=== PATIENT | female | born 2000 | race Caucasian/White ===

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

== ENCOUNTER 2021-11-10 09:09 | Emergency (ER) | payer OTHER ==
[2021-11-10 09:14] VITALS: BP 137/74; PULSE 80; RESP 20; TEMP 98
--- NOTE | 2021-11-10 09:54 | ED ---
General Adult HPI - General Chief complaint: Needlestick/Exposure Stated complaint: needlestick Time Seen by Provider: 11/10/21 09:25 Source: patient, RN notes reviewed Mode of arrival: ambulatory Limitations: no limitations - History of Present Illness Initial comments: 21-year-old female presents emergency Department chief complaint of abrasion to her right leg. 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 Patient states that something cause an abrasion to her right leg to her scrub vomiting. Patient states that there is small linear skin removed there is no deep puncture wound. She states is minimal bleeding tetanus is up-to-date. She states that what causes this abrasion. - Related Data Home Medications Medication Instructions Recorded Confirmed Cariprazine HCl [Vraylar] 1.5 mg PO DAILY 07/11/18 07/11/18 Levothyroxine Sodium [Synthroid] 25 mcg PO DAILY 07/11/18 07/11/18 OXcarbazepine [Trileptal] 150 mg PO DAILY 07/11/18 07/11/18 OXcarbazepine [Trileptal] 300 mg PO DAILY 07/11/18 07/11/18 Omeprazole [PriLOSEC] 20 mg PO DAILY 07/11/18 07/11/18 hydrOXYzine pamoate [hydrOXYzine 50 mg PO DAILY 07/11/18 07/11/18 PAMOATE] levETIRAcetam [Keppra] 500 mg PO DAILY 07/11/18 07/11/18 Allergies Allergy/AdvReac Type Severity Reaction Status Date / Time No Known Allergies Allergy Verified 11/10/21 09:14 Review of Systems ROS Statement: Those systems with pertinent positive or pertinent negative responses have been documented in the HPI. ROS Other: All systems not noted in ROS Statement are negative. Past Medical History Past Medical History: GERD/Reflux, Seizure Disorder, Thyroid Disorder Additional Past Medical History / Comment(s): KIDNEY STONE, PCOS, History of Any Multi-Drug Resistant Organisms: None Reported Past Surgical History: Cholecystectomy Additional Past Anesthesia/Blood Transfusion Reaction / Comment(s): FIRST ANESTHETIC, Past Psychological History: ADD/ADHD, Anxiety, Bipolar, Depression Past Alcohol Use History: Occasional Past Drug Use History: Marijuana - Past Family History Mother Family Medical History: No Reported History General Exam Limitations: no limitations General appearance: alert, in no apparent distress Head exam: Present: atraumatic, normocephalic, normal inspection Eye exam: Present: normal appearance, PERRL, EOMI. Absent: scleral icterus, conjunctival injection, periorbital swelling Respiratory exam: Present: normal lung sounds bilaterally. Absent: respiratory distress, wheezes, rales, rhonchi, stridor Cardiovascular Exam: Present: regular rate, normal rhythm, normal heart sounds. Absent: systolic murmur, diastolic murmur, rubs, gallop, clicks Extremities exam: Present: other (Right anterior fernandes there is a small abrasion no active bleeding superficial layer skin removed no deep puncture wounds no lacerations.) Course Vital Signs 11/10/21 09:12 Temperature 98.0 F Pulse Rate 80 Respiratory 20 Rate Blood Pressure 137/74 O2 Sat by Pulse 97 Oximetry Medical Decision Making - Medical Decision Making It is unclear what the cause patient's abrasion to her right leg there is no deep injury. Puncture wounds no lacerations. Patient is a small abrasion I did offer HIV prophylaxis as we do not know the cause laceration no patient is comfortable not taking the medication given low probability. Disposition Clinical Impression: Abrasion of right leg Disposition: HOME SELF-CARE Condition: Stable Instructions (If sedation given, give patient instructions): Abrasion (ED) Additional Instructions: Please return to the Emergency Department if symptoms worsen or any other concerns. Is patient prescribed a controlled substance at d/c from ED?: No Referrals: Arabella Oates DO [Primary Care Provider] - 1-2 days Time of Disposition: 09:54
== END 2021-11-10 10:10 | disposition home or self-care (01) ==
LOC: EC 09:09
DX: S80.811A Abrasion, right lower leg, initial encounter (principal); K21.9 Gastro-esophageal reflux disease without esophagitis; E07.9 Disorder of thyroid, unspecified; F41.9 Anxiety disorder, unspecified; F31.9 Bipolar disorder, unspecified; F12.90 Cannabis use, unspecified, uncomplicated; Z79.899 Other long term (current) drug therapy; W46.1XXA Contact with contaminated hypodermic needle, initial encounter
CPT/HCPCS: 99282

== ENCOUNTER 2022-08-28 09:00 | Outpatient (CLI) | payer OTHER ==
[2022-08-28] MEDS ORDERED: LACTATED RINGERS 1,000 ML IV ONE (09:27)
[2022-08-28] MEDS ORDERED: ONDANSETRON 4 MG/2 ML VIAL IVP STA (09:28)
[2022-08-28] MEDS ORDERED: BETAMET ACET-BETAMETH SOD PHOS 6 MG/ML MDV IM SCH (10:01)
[2022-08-28] MEDS ORDERED: FAMOTIDINE 20 MG/2 ML VIAL IV SCH (10:15)
[2022-08-28] MEDS ORDERED: NIFEdipine 10 MG CAP PO SCH (10:30)
--- NOTE | 2022-08-28 10:59 | P.HPOB ---
History of Present Illness H&P Date: 08/28/22 Chief Complaint: nausea, vomiting, diarrhea, contractions 22 year old at 33 weeks and 5 days with EDC of 10/11/2022 presenting to triage with 1-day history of nausea, vomiting, diarrhea, and body aches after attending a libertarian and eating walking tacos. Her partner at the bedside complains of similar symptoms. She is also experiencing a few contractions an hour. She is feeling movement and denies leakage of fluid or vaginal bleeding. Of note, she has had intercourse within the last 24 hours and the decision is made not to do an FFN. 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 She receives care at [facility] and is supposed to deliver at [facility]. Otherwise, the has been uncomplicated. Past Medical History Past Medical History: GERD/Reflux, Seizure Disorder, Thyroid Disorder Additional Past Medical History / Comment(s): KIDNEY STONE, PCOS, pituitary tumor History of Any Multi-Drug Resistant Organisms: None Reported Past Surgical History: Cholecystectomy Additional Past Anesthesia/Blood Transfusion Reaction / Comment(s): FIRST ANESTHETIC, Past Psychological History: ADD/ADHD, Anxiety, Bipolar, Depression Smoking Status: Current every day smoker Past Alcohol Use History: Occasional Past Drug Use History: Marijuana - Past Family History Mother Family Medical History: No Reported History Medications and Allergies Home Medications Medication Instructions Recorded Confirmed Type Cariprazine HCl [Vraylar] 1.5 mg PO DAILY 07/11/18 08/28/22 History Levothyroxine Sodium [Synthroid] 25 mcg PO DAILY 07/11/18 08/28/22 History Omeprazole [PriLOSEC] 20 mg PO DAILY 07/11/18 08/28/22 History hydrOXYzine pamoate [hydrOXYzine 50 mg PO DAILY 07/11/18 08/28/22 History PAMOATE] levETIRAcetam [Keppra] 500 mg PO DAILY 07/11/18 08/28/22 History Vit No.179/Iron/Folic 1 tab PO ONCE 08/28/22 08/28/22 History [ Tablet] Allergies Allergy/AdvReac Type Severity Reaction Status Date / Time No Known Allergies Allergy Verified 08/28/22 09:25 Exam Intake and Output 08/27/22 08/28/22 08/28/22 22:59 06:59 14:59 Other: Weight 114.305 kg Focused physical exam is performed. The patient is breathing through a contraction. Cervial exam is 3cm dilated, 70% effaced, and -2 station. heart tones are Category I and the patient is graphing contractions every 10 minutes. Assessment and Plan Assessment: 22 year old at 33 weeks and 5 days presenting with viral symptoms and labor Plan: 1. labor. s/p first dose of BMZ, Procardia IR 10 mg for tocolysis. GBS cx collected and PCN bolus given. 2. Suspected viral gastroenteritis. s/p 1L fluid bolus, IV zofran and pepcid, PCN. Dispo: Discussed patient with [facility] and they are willing to accept the transfer of care for labor. Time with Patient: Greater than 30 (45 minutes)
[2022-08-28] MEDS ORDERED: PENICILLIN G POTASSIUM 5,000,000 UNIT in DEXTROSE 5% IN WATER 100 ML IVPB STA ×2 (11:05)
[2022-08-28] MEDS ORDERED: PENICILLIN G BENZATHINE 1,200,000 UNIT/2 ML SYRINGE IM ONE (11:30)
[2022-08-28 12:58] VITALS: BP 116/67; PULSE 104; RESP 16; TEMP 98.6
== END 2022-08-28 12:41 | disposition other institution (70) ==
LOC: FBPOP 09:00
PROVIDERS: ATTEND Obstetrics & Gynecology
DX: O60.03 Preterm labor without delivery, third trimester (principal); Z3A.33 33 weeks gestation of pregnancy; G40.909 Epilepsy, unspecified, not intractable, without status epilepticus; F17.200 Nicotine dependence, unspecified, uncomplicated; O99.333 Smoking (tobacco) complicating pregnancy, third trimester; Z79.890 Hormone replacement therapy; E07.9 Disorder of thyroid, unspecified
CPT/HCPCS: 59025; 96361; 96365; 96375; 96372; 87081; 87636; G0463; J2405; J2540; J0702; 99214

== ENCOUNTER 2022-08-29 10:06 | Outpatient (CLI) | payer OTHER ==
[2022-08-29] MEDS ORDERED: BETAMET ACET-BETAMETH SOD PHOS 6 MG/ML MDV IM SCH (10:30)
[2022-08-29 11:06] VITALS: BP 127/58; PULSE 78; RESP 14; TEMP 97.3
== END 2022-08-29 11:09 | disposition home or self-care (01) ==
LOC: FBPOP 10:06
PROVIDERS: ATTEND Obstetrics & Gynecology
DX: O60.00 Preterm labor without delivery, unspecified trimester (principal); O99.330 Smoking (tobacco) complicating pregnancy, unspecified trimester; F17.200 Nicotine dependence, unspecified, uncomplicated; Z3A.00 Weeks of gestation of pregnancy not specified
CPT/HCPCS: 96372; J0702